=== PATIENT | female | born 1995 | race Caucasian/White ===

== ENCOUNTER 2020-06-29 10:00 | Outpatient (RCR) | payer OTHER, SELFPAY ==
--- NOTE | 2020-04-29 10:33 | PTOPEVAL ---
Thank you for referring Kelby Holden to [facility]. Please review, sign, date and return this plan of care KARLA. Pt referred to therapy due to chronic back pain. She demonstrates muscle weakness, decreased hip motion, and poor movement patterns with standing, walking and functional movement. She requires additional skilled PT 2x/wk x 6 wk. I agree with and certify that the following plan of care is medically necessary. Referring Physician Date Attending Provider: Karuna Al, MD *PT Outpatient Evaluation Start: 04/29/20 09:35 Freq: Status: Active Protocol: Document 04/29/20 09:32 CAP (Rec: 04/29/20 10:15 [facility] [email or web address]) Therapy Assessment Status Assessment Status Assessment Status Evaluation Outpatient Past Medical History Past Medical History Source of Past Medical History Patient,Recalled from Previous Visit, Confirmed with Patient /Family Gastrointestinal History Hx Other Gastrointestinal Disorders Yes: BMI 48.7 Musculoskeletal History Hx Back Pain Yes Psychosocial History Hx Anxiety Yes Hx Depression Yes Evaluation Information Problem Diagnosis back pain Onset 2-3 years ago Cause unknown Additional Evaluation Detail . Subjective Information Reports she has been having Query Text:As Reported By Patient/ back pain for 2-3 years with Family increased pain ~1 month ago. She works at a [employer] with increased pain with prolonged standing. She also has increased pain with steps and walking. 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 and no walking or fitness program Diagnostic Tests X-Rays For This Problem No Previous Treatments Previous Treatments For This Problem chiropractor Pain Assessment Timing of Pain Assessment Timing of Pain Assessment Assessment Pain Scale Pain Scale Used Numeric (1 - 10) Self Report Pain Assessment Left Back Reported Pain Level 2 Pain Description Radiating,Sharp Pain Radiation Left Leg Pain Frequency Chronic Lowest Pain Intensity 2 Greatest Pain Intensity 10 Pain Aggravating Factors Prolonged Position,Stair Climbing,Walking,Weight Bearing/Standing Pain Behaviors None Pain Relief Interventions Used By None Patient
--- NOTE | 2020-05-25 16:38 | PTOPEVAL ---
Thank you for referring Kelby Holden to [facility]. Please review, sign, date and return this plan of care KARLA. Pt has been seen for 4 therapy visits since 04/29/20 to address back pain. She is progressing slowly towards therapy goals for joint range, strength and pain with daily activities. She requires additional skilled therapy for progression of HEP, strengthening and to address soft tissue restrictions. Cont PT 2x/wk x 4 wk. I agree with and certify that the following plan of care is medically necessary. Referring Physician Date Attending Provider: Karuna Al, PT re-evaluation update *PT Outpatient Evaluation Start: 04/29/20 09:35 Freq: Status: Active Protocol: Document 05/25/20 10:02 KRISHNA (Rec: 05/25/20 10:38 [facility] [email or web address]) Therapy Assessment Status Assessment Status Assessment Status Re-evaluation Outpatient Past Medical History Past Medical History Source of Past Medical History Patient,Recalled from Previous Visit, Confirmed with Patient /Family Gastrointestinal History Hx Other Gastrointestinal Disorders Yes: BMI 48.7 Musculoskeletal History Hx Back Pain Yes Psychosocial History Hx Anxiety Yes Hx Depression Yes Evaluation Information Problem Diagnosis back pain Onset 2-3 years ago Cause unknown Additional Evaluation Detail Reports she has been having back pain for 2-3 years with increased pain ~1 month ago. Subjective Information Reports her pain remains with Query Text:As Reported By Patient/ limited progress. She has been Family performing her HEP 1-2x/wk. She continues to have increased pain with walking, steps and prolonged standing. She denies problems with carrying, but pain with lifting objects from the ground. She has to lift 50# boxes from the ground. Pain Assessment Timing of Pain Assessment Timing of Pain Assessment Re-assessment Pain Scale Pain Scale Used Numeric (1 - 10) Self Report Pain Assessment Left Back Reported Pain Level 6 Pain Description Pinching,Stabbing Pain Frequency Chronic,Continuous Lowest Pain Intensity 2 Greatest Pain Intensity 7 Pain Aggravating Factors Lifting,Prolonged Position, Stair Climbing,Walking,Weight Bearing/Standing Pain Relief Interventions Used By None Patient
--- NOTE | 2020-06-01 12:24 | PCPTNOTE ---
Pt no showed for this appointment, 06/01/2020 @10:15.
--- NOTE | 2020-06-17 10:21 | PCPTNOTE ---
Patient did not show up for scheduled appointment this date.
--- NOTE | 2020-06-29 10:19 | PCPTNOTE ---
Patient did not show up for scheduled appointment this date. Left message due to repeated no show/cancelled appointment. Will DC pt at this time.
--- NOTE | 2020-06-29 10:22 | PCPTNOTE ---
Admitting Provider: Attending Provider: Karuna Al, Patient:Kelby Holden Date of :1995 Discharge Note Patient has not returned for any further treatments since 06/10/2020, therefore she will be discharged at this time. Patient?s initial visit was on 04/29/2020 09:30 and she had a total of 7 visits. She had 10 cancelled or no show therapy appointments. The goals have been partially met at this time. Thank you for referring this patient to [facility]. Please review, sign, date and return this discharge summary KARLA. I have been updated about the patient's current status and I agree with discharge from the above service at this time. Referring Physician Date
== END 2020-06-29 14:34 | disposition home or self-care (01) ==
LOC: ANHPT 10:00
PROVIDERS: PCP Physician Assistant; Visit Provider Family Medicine
DX: M54.42 Lumbago with sciatica, left side (principal)
CPT/HCPCS: 97014; 97110; 97112; 97140; 97162; G0283